=== PATIENT | female | born 2000 | race Caucasian/White ===

== ENCOUNTER 2023-02-24 20:40 | Emergency (ER) | payer MEDICAID, SELFPAY ==
--- NOTE | ~2023-02-24 | CT_ITS ---
EXAMINATION: CT abdomen pelvis w con INDICATION: Right-sided abdominal pain TECHNIQUE: Computed tomographic images of the abdomen and pelvis were obtained after the administrati on of 100 cc of Omnipaque 350 intravenous contrast. The dose-length product (DLP) was 1473.55 mGy-cm. Automated exposure control and iterative reconstruction technique were employed. COMPARISON: None available FINDINGS: There are small nodules of the visualized lung bases which measure up to 3 mm. The heart si ze is normal. There is focal fatty infiltration of the liver near the ligamentum teres. A 6 mm hypoat tenuating area of the spleen is too small to characterize but likely represents a cyst or lymphangiom a. The pancreas, gallbladder, and adrenal glands are normal. The kidneys are unremarkable. No patholo gically enlarged abdominal or pelvic lymph nodes are identified. No free intraperitoneal gas or evide nce of bowel obstruction. The appendix is normal. IMPRESSION: 1. No CT correlate for the patient's symptoms. Reviewed, dictated and finalized at location A.
[2023-02-24 20:43] VITALS: BP 148/70; PULSE 91; RESP 16; TEMP 36.2; O2SAT 99
[2023-02-24] MEDS: PANTOPRAZOLE SODIUM IV 40 MG VIAL IV PUSH (22:37)
[2023-02-24] MEDS: SODIUM CHLORIDE 0.9% IV 1,000 ML 999 ML IV CONT (22:37)
[2023-02-24] MEDS: ONDANSETRON INJ 4 MG/2 ML VIAL IV PUSH (22:37)
[2023-02-24 22:50] LABS: Basophils Percent Auto 0.2 % (0.2-1.2); Eosinophils Percent Auto 0.3 % (0-4.4); Hemoglobin 13.3 g/dL (12.0-15.0); Immature Granulocyte Absolute 0.02 K/mm3 (0.00-0.031); Immature Granulocyte Percent A 0.2 % (0-0.5); Lymphocytes Percent Auto 26.8 % (18.3-44.2); Mean Corpuscular HGB Conc 32.4 g/dl (32-36); Mean Corpuscular Hemoglobin 27.6 pg (26-34); Mean Corpuscular Volume 85.1 fl (80-100); Mean Platelet Volume 10.7 fl (7.4-10.4); Monocytes Absolute Auto 0.5 K/mm3 (0.1-0.6); Monocytes Percent Auto 4.4 % (2.6-8.5); Neutrophils Absolute Auto 7.9 K/mm3 (1.3-6.7); Neutrophils Percent Auto 68.1 % (45.5-73.1); Platelet Count Result 293 k/mm3 (150-375); Red Blood Count 4.82 M/mm3 (4.2-5.4); Red Cell Distribution Width 13.7 % (11.5-14.5); White Blood Count 11.6 K/mm3 (4.5-10.0)
[2023-02-24 23:33] LABS: Appearance Urine Turbid (Clear); Bacteria Urine None Seen /hpf; Bilirubin Urine Negative (Negative); Blood Urine Negative (Negative); Color Urine Yellow (Yellow); Glucose Urine UA Negative (Negative); Ketones Urine Negative (Negative); Leukocyte Esterase Ur Negative LEU/UL (Negative); Nitrate Urine Negative (Negative); Non Pathogenic Casts 0-2; Protein Urine Negative (Negative); RBC Urine 0-2 /hpf (0-2); Specific Grav Ur 1.017 (1.001-1.035); Squamous Epithelial Cell Urine None seen /hpf (Few); Urobilinogen Urine 0.2 mg/dL (<2.0); WBC Urine 0-5 /hpf; pH Urine 7.5 (5.0-9.0)
[2023-02-24 23:35] LABS: Alanine Aminotransferase 19 U/L (6-35); Albumin Level 4.6 g/dL (3.5-5.1); Alkaline Phosphatase 69 U/L (38-126); Anion Gap 10 mmol/L (8-16); Aspartate Amino Transferase 21 U/L (14-36); Bilirubin,Total 0.6 mg/dL (0.2-1.3); Blood Urea Nitrogen 7 mg/dL (7-17); Calcium 9.6 mg/dL (8.4-10.2); Carbon Dioxide 27 mmol/L (22-30); Chloride 103 mmol/L (98-107); Estimated CRCL calculation 198 ml/min; Estimated Glomerular Filt Rate > 60; Glucose 89 mg/dL (65-110); Lipase 48 U/L (23-300); Potassium 3.3 mmol/L (3.4-5.0); Sodium 140 mmol/L (137-145)
--- NOTE | 2023-02-24 23:47 | ED.NAVMDI ---
HPI - Nausea/Vomiting/Diarrhea General Chief complaint: Nausea/Vomiting/Diarrhea Stated complaint: nausea/vomiting Time Seen by Provider: 02/24/23 21:35 Source: patient Mode of arrival: ambulatory Limitations: no limitations History of Present Illness HPI Narrative: Patient is a 23-year-old female who presents to the ED with report of nausea, vomiting, diarrhea. Patient reports she took a Plan B pill after unprotected sex on 02/02. She reported having nausea for a few days after taking the pills. She developed vomiting approximately 1 week later and reports having persistent nausea and vomiting with any food or drink. She states this occurs daily. She is able to keep down small amounts of food and fluid at times, but has not had a large meal in the last 2 weeks she reports. She also reports having intermittent diarrhea and diffuse abdominal pain. She has not tried taking anything for her symptoms. She states she was sent to the ED by her primary care doctor to evaluate for appendicitis or cholecystitis. Patient denies any fever, rectal bleeding, hematemesis, melena, urinary symptoms. Related Data Allergies Allergy/AdvReac Type Severity Reaction Status Date / Time No Known Allergies Allergy Verified 02/24/23 20:43 Review of Systems Review of Systems: CONSTITUTIONAL: Denies fever, chills, or sweats. CARDIOVASCULAR: Denies chest pain. RESPIRATORY: Denies dyspnea. GASTROINTESTINAL: See HPI. GENITOURINARY: Denies dysuria or hematuria. SKIN: Denies rash or itching. MUSCULOSKELETAL: Denies back pain, joint pain, or myalgia. NEUROLOGIC: Denies headache, numbness, or weakness. All systems reviewed & are unremarkable except as noted in HPI and below PMFSH Past Medical History Medical History (Updated 02/25/23 @ 01:11 by Dina Abdul PA-C) No pertinent past medical history Surgical History Surgical History (Updated 02/25/23 @ 00:00 by Dina Abdul PA-C) No pertinent past surgical history Family History Family History Other Breast cancer Social History Social History Smoking status: Never smoker Alcohol intake: current Drinks per week: 1 Substance use: current Substance use type: marijuana Other substance usage details: 2-3 x week Living arrangements: other Additional living arrangements comments: single Occupation/Education: occupation 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 HEAD: Normocephalic, atraumatic. NECK: Supple. No adenopathy, no masses. RESPIRATORY: Airway patent, respirations nonlabored. Clear to auscultation bilaterally, no rales, rhonchi, wheezing. CARDIOVASCULAR: Regular rate and rhythm without murmurs, rubs, or gallops. Radial pulses 2+ and equal bilaterally. ABDOMINAL: Soft, tenderness in epigastric region, right upper quadrant, right lower quadrant, nondistended, no hepatosplenomegaly. Normoactive BS. MUSCULOSKELETAL: Moves all extremities. Strength/ROM intact without gross deformities. SKIN: Warm, dry, normal color. No rashes. NEURO: A&O X3. Speech clear. Cranial nerves II-XII grossly intact. Steady gait. No ataxic movements. PSYCHIATRIC: Appropriate mood and affect. Normal interaction. Course Vital Signs Vital signs: Vital Signs Temperature 97.1 F L 02/24/23 20:43 Pulse Rate 91 02/24/23 20:43 Respiratory Rate 16 02/24/23 20:43 Blood Pressure 148/70 H 02/24/23 20:43 Pulse Oximetry 99 02/24/23 20:43 Oxygen Delivery Room Air 02/24/23 20:43 Temperature 97.1 F L 02/24/23 20:43 Pulse Rate 63 02/25/23 01:24 Respiratory Rate 18 02/25/23 01:24 Blood Pressure 151/83 H 02/25/23 01:
[2023-02-24 23:49] LABS: Add Urine Microscopic? NO
[2023-02-25] MEDS: ONDANSETRON INJ 4 MG/2 ML VIAL IV PUSH (01:20)
[2023-02-25] MEDS: POTASSIUM CHLORIDE 20 MEQ TABLET 40 MEQ PO (01:21)
[2023-02-25 01:24] VITALS: BP 151/83; PULSE 63; RESP 18; O2SAT 98
== END 2023-02-25 01:30 | disposition home or self-care (01) ==
PROVIDERS: Emergency Provider Physician Assistant
DX: R11.2 Nausea with vomiting, unspecified (principal); R10.9 Unspecified abdominal pain; R91.8 Other nonspecific abnormal finding of lung field
CPT/HCPCS: 36415; 74177; 80053; 81003; 81025; 83690; 85025; 96361; 96374; 96375; 99284; A9270; C9113; J0131; J2405; J7030; Q9967

== ENCOUNTER 2023-03-28 10:43 | Outpatient (CLI) | payer MEDICAID, SELFPAY ==
[2023-03-28 12:01] LABS: HIV 1/2 Ab P24 Ag Result Negative (Negative)
[2023-03-28 12:33] LABS: Hepatitis B Surface Antigen Negative (Negative)
[2023-03-28 12:39] LABS: HAV RESULT Negative (Negative); Hepatitis B Core IgM Result Negative (Negative)
[2023-03-28 12:50] LABS: Hepatitis C Virus Antibody Negative (Negative)
[2023-03-29 07:56] LABS: Rapid Plasma Reagin Non-Reactive (NonReactive)
== END 2023-03-28 10:44 | disposition home or self-care (01) ==
LOC: ANHLAB 10:44
PROVIDERS: Visit Provider Obstetrics & Gynecology
DX: Z11.3 Encounter for screening for infections with a predominantly sexual mode of transmission (principal)
CPT/HCPCS: 36415; 80074; 86592; 86695; 86696; 86703; G0432

== ENCOUNTER 2024-03-05 08:44 | Outpatient (CLI) | payer BC, SELFPAY ==
[2024-03-05 09:59] LABS: Hematocrit 39.9 % (37.0-47.0); Hemoglobin 12.8 g/dL (12.0-15.0); Mean Corpuscular HGB Conc 32.1 g/dl (32-36); Mean Corpuscular Hemoglobin 27.9 pg (26-34); Mean Corpuscular Volume 86.9 fl (80-100); Mean Platelet Volume 10.7 fl (7.4-10.4); Platelet Count Result 249 k/mm3 (150-375); Red Blood Count 4.59 M/mm3 (4.2-5.4); Red Cell Distribution Width 13.6 % (11.5-14.5); White Blood Count 7.2 K/mm3 (4.5-10.0)
== END 2024-03-05 08:45 | disposition home or self-care (01) ==
LOC: ANHSURGERY 08:49
PROVIDERS: Visit Provider Student in an Organized Health Care Education/Training Program
DX: R10.2 Pelvic and perineal pain (principal); Z01.818 Encounter for other preprocedural examination
CPT/HCPCS: 36415; 85027; 86850; 86900; 86901

== ENCOUNTER 2024-03-07 00:26 | Day surgery (SDC) | payer BC, SELFPAY ==
[2024-03-03 15:21] VITALS: BMI 33.5
--- NOTE | 2024-03-03 15:46 | SUR.PREOP ---
Report to the Outpatient Waiting Room, entrance under the green pavilion located off [facility], at time 11:00am on date 03/07/2024. Planned Procedure Time: 1:00pm. Time changes happen often and if your time is changed the preop area will call you the afternoon before. - You and your visitor will be asked to self-screen and do not enter if you have any COVID symptoms. - A mask is optional within the hospital at this time. Patients may have clear liquids (water, carbonated beverages, clear teas, apple juice) until 3 hours prior to surgery with a maximum of 20 ounces- 10:00am. - No food from midnight until time of surgery - Infants may have breast milk until 4 hours before surgery, infant formula 6 hours prior to surgery. - Children will be allowed to drink immediately following surgery. If applicable, please bring a bottle or sippy cup to assist with drinking. Juice, water, soda, and popsicles are readily available. For infants on formula, please bring formula the day of surgery. Pacifiers are allowed. Take the following medications with a SIP of water the morning of surgery: birth control, bupropion DO NOT STOP ANY OF YOUR OTHER PRESCRIPTION MEDICATIONS PRIOR TO SURGERY ?EXCEPT THE FOLLOWING Medications to discontinue per physician N/A Please no make-up, nail montenegrin, hairspray, perfume, deodorant, or body powder the day of surgery. No jewelry (including any body piercings) or valuables the day of surgery, leave them at home. Please take a shower or bath the night before, or the morning of, surgery with an antibacterial soap. Wear comfortable, loose fitting clothing. Children are encouraged to wear pajamas. - Jewelry must be removed prior to entering the operating room. Rings and piercings that are not removed may be cut off. - The hospital will not accept responsibility for valuables. - Please leave all valuables, including medications, at home the day of surgery. If you are going home after surgery, a licensed electric pile driver operator must drive you home. - NO public transportation without another adult if you receive anesthesia. - We recommend that an adult stay with you for 24 hours following discharge. - We also recommend that you do not drive, make important decision, drink alcoholic beverages, or take any drugs that were not prescribed by your health care provider for at least 24 hours after your discharge time. For Pediatric surgeries, we recommend two adults accompany the child home. Follow any additional instructions given to you from your surgeon. If you or anyone in your household have experienced Covid symptoms in the past week, please notify your surgeon or the nurse liaison at the phone number below for possible testing. Telephone instructions given to Melanie and asked if any additional questions and then verbalized understanding. Patient advised to call surgeon office or pre surgery nurse liaison [phone] if any additional questions.
--- NOTE | 2024-03-07 11:37 | PM.IMHP ---
H&P: HPI History of Present Illness Date/Time: 03/07/24 11:37 Chief Complaint: pelvic pain Narrative: ?23-year-old female who presents with complaint of chronic pelvic pain.? Patient states she has had exacerbation of pelvic pain for the past year.? Patient states she has been experiencing some form of pelvic pain since she was 11 years old.? Patient has tried multiple forms of? hormonal contraceptives.? Patient is currently ? OCPs.? Patient reports amenorrhea on her OCP.? Patient states she still struggles with chronic pain.? Patient states she has the pain daily.? She says at baseline the pain is a 3/10.? Patient states once a week she will has exacerbation of her pain.? Patient states when she has flare up of her pain she also has intense nausea and vomiting.? Patient has had colonoscopy and EGD performed.? All previous testing was benign.? Patient was recently screened for STDs which was negative.? Patient has not been sexually active in a year. Review of Systems Cardiovascular: Cardiovascular: Denies chest pain, Denies leg edema, Denies palpitations, Denies dyspnea and Denies dyspnea on exertion Respiratory: Respiratory: Denies cough, Denies dyspnea and Denies dyspnea on exertion Gastrointestinal: Gastrointestinal: Denies abdominal pain, Denies constipation, Denies diarrhea, Denies nausea and Denies vomiting Genitourinary: Genitourinary: Denies hematuria, Denies urinary frequency, Denies dysuria, Denies pelvic pain, Denies urinary incontinence and Denies vaginal discharge Neurologic: Reports system reviewed and no additional complaints, except as documented Psychiatric: Psychiatric: Reports no additional psychiatric complaints Endocrine: Endocrine: Denies palpitations [facility] Past Medical History Medical History (Updated 03/07/24 @ 11:38 by Malik Gutierrez MD) No pertinent past medical history Normal colonoscopy Surgical History Surgical History (Updated 01/24/24 @ 08:12 by Jaclyn Collins CMA) History of esophagogastroduodenoscopy (EGD) Hx of tonsillectomy Family History Family History Grandparent Breast cancer paternal grandmother Social History Social History Smoking status: Never smoker Alcohol intake: current Drinks per week: 1 Substance use: current Substance use type: marijuana Other substance usage details: 2-3 x week Living arrangements: alone Additional living arrangements comments: single Occupation/Education: occupation 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 Gender identity (if verbalized by the patient): Female Sexual Orientation (if Verbalized by the Patient): Straight or Heterosexual Spiritual care concerns: No Meds Home Medications and Allergies Home Medications Medication Instructions Recorded Confirmed Type drospirenone 3 mg-ethinyl 1 tablet PO DAILY #84 tabs 03/28/23 03/03/24 Rx estradiol 0.02 mg tablet (MADALYN (28)) bupropion HCl 150 mg tablet,12 hr 150 mg PO DAILY 10/02/23 03/03/24 History sustained-release Allergies Allergy/AdvReac Type Severity Reaction Status Date / Time No Known Allergies Allergy Verified 03/07/24 11:20 Exam Const: General: no acute distress Eyes: EOM: EOMs intact bilaterally Neck: Neck: supple Thyroid: thyroid normal Chest: Breast/axilla inspection: normal inspection of the breasts Breast/axilla palpation: normal palpation of the breasts, normal palpation of the axillae and no axillary lymphadenopathy Resp: Effort & Inspection: normal respiratory effort Auscultation: clear to auscultation bilaterally Cardio: Rate: regular rate Rhythm: regular rhythm GI: Inspection: non-distended GI Palp: Yes Soft to palpation, No Tenderness to palpation present (GI) and No Guarding due to palpation present (GI) Auscultation: normal bowel sounds : General: No bladder normal to palpati
[2024-03-07] MEDS: ACETAMINOPHEN 500 MG TABLET 1000 MG PO (11:55)
[2024-03-07] MEDS: KETOROLAC 15 MG/ML VIAL (*BKC) IV PUSH (11:57)
--- NOTE | 2024-03-07 12:03 | WPDHPUPDATE1 ---
History and Physical Update Update Date/Time: 03/07/24 12:03 History and Physical has been reviewed, including an updated exam of the patient. There are NO changes in the patient's condition. Risks, benefits, and alternatives have been discussed and questions answered. Patient agrees to proceed with procedure.
[2024-03-07 12:05] VITALS: BP 120/65; PULSE 81; RESP 16; TEMP 36.6; O2SAT 99
--- NOTE | 2024-03-07 13:20 | SUR.PREOP ---
patient updated on delay to surgery start
--- NOTE | 2024-03-07 13:50 | SUR.PREOP ---
patient updated again on surgery delay
[2024-03-07] MEDS: LIDOCAINE HCL 1% LOCAL INJ 20 ML VIAL INFILTRATE (14:57)
[2024-03-07 15:11] VITALS: BP 117/83; PULSE 66; RESP 16; TEMP 36.4; O2SAT 97
[2024-03-07] MEDS: LACTATED RINGERS 1,000 ML 30 ML IV CONT ×2 (15:11)
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
[2024-03-07 15:30] VITALS: BP 124/66; PULSE 68; RESP 20; O2SAT 98
[2024-03-07 15:45] VITALS: BP 135/80; RESP 18; O2SAT 99
[2024-03-07 16:00] VITALS: BP 142/96; PULSE 116; RESP 18
[2024-03-07 16:30] VITALS: BP 140/83; PULSE 69; RESP 16
== END 2024-03-07 16:50 | disposition home or self-care (01) ==
PROVIDERS: Visit Provider Student in an Organized Health Care Education/Training Program
PROC: (CPT 49320; principal; 2024-03-07 13:00)
DX: N80.319 Endometriosis of the anterior cul-de-sac, unspecified depth (principal); F12.90 Cannabis use, unspecified, uncomplicated
CPT/HCPCS: 58662; A9270; J1100; J1170; J1200; J1885; J2250; J2405; J2704; J3010; J7030; J7120

== ENCOUNTER 2024-08-18 13:28 | Outpatient (CLI) | payer BC, SELFPAY | END 2024-08-18 13:29 | disposition home or self-care (01) | PROVIDERS: PCP Family Medicine; Visit Provider Family Medicine | DX: H91.90 Unspecified hearing loss, unspecified ear (principal) | CPT/HCPCS: 92557; 92567 ==

== ENCOUNTER 2024-08-21 10:04 | Outpatient (CLI) | payer BC, SELFPAY ==
[2024-08-21 10:25] LABS: Hematocrit 40.2 % (37.0-47.0); Hemoglobin 12.9 g/dL (12.0-15.0); Mean Corpuscular HGB Conc 32.1 g/dl (32-36); Mean Corpuscular Hemoglobin 27.4 pg (26-34); Mean Corpuscular Volume 85.4 fl (80-100); Mean Platelet Volume 10.6 fl (7.4-10.4); Platelet Count Result 237 k/mm3 (150-375); Red Blood Count 4.71 M/mm3 (4.2-5.4); Red Cell Distribution Width 13.2 % (11.5-14.5); White Blood Count 5.7 K/mm3 (4.5-10.0)
[2024-08-21 10:38] LABS: Alanine Aminotransferase 12 U/L (6-35); Albumin Level 4.5 g/dL (3.5-5.1); Alkaline Phosphatase 53 U/L (38-126); Anion Gap 9 mmol/L (4-12); Aspartate Amino Transferase 16 U/L (14-36); Bilirubin,Total 0.4 mg/dL (0.2-1.3); Blood Urea Nitrogen 8 mg/dL (7-17); Calcium 9.2 mg/dL (8.4-10.2); Carbon Dioxide 26 mmol/L (22-30); Chloride 104 mmol/L (98-107); Cholesterol 259 mg/dL (0-200); Estimated Glomerular Filt Rate > 60; Glucose 100 mg/dL (65-110); HDL Direct 80 mg/dL; Sodium 139 mmol/L (137-145); Triglycerides 75 mg/dL (<150)
[2024-08-21 10:49] LABS: LDL Cholesterol Direct 146 mg/dL
[2024-08-21 11:09] LABS: Thyroid Stimulating Hormone 0.888 uIU/mL (0.465-4.680)
== END 2024-08-21 10:05 | disposition home or self-care (01) ==
LOC: ANHLAB 10:06
PROVIDERS: PCP Family Medicine; Visit Provider Family Medicine
DX: E66.9 Obesity, unspecified (principal); Z79.899 Other long term (current) drug therapy; Z82.49 Family history of ischemic heart disease and other diseases of the circulatory system
CPT/HCPCS: 36415; 80053; 80061; 84443; 85027; 85303; 85306

== ENCOUNTER 2024-12-12 15:04 | Outpatient (CLI) | payer BC, SELFPAY ==
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
--- OUTSIDE RECORDS SUMMARY | 2024-12-12 15:07 | XMS_ITS | Clinical Summary ---
Author Organization [facility] Address [address] [place] [address]. [place], [place] [id number] [place] [id number] Care Team Providers Care Content Development Manager Name Role Phone None, Provider MD Primary Care Provider Unavaila ble Allergies No known active allergies Medications No known medications Social History Tobacco Use Types Packs/Day Years Used Date Smoking Tobacco: Never Smokeless Tobacco: Never Tobacco Cessation:Counseling Given: Not Answered Alcohol Use Standard Drinks/Week Comments Yes 0 (1 standard drink = 0.6 oz pur e alcohol) occassional Comments Unknown Sex and Gender Information Value Date Recorded Sex Assigned at Not on file 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 Gender Identity Not on file Sexual Orientation Not on file Last Filed Vital Signs Vital Sign Reading Time Taken Comments Blood Pressure 150/83 03/25/2023 9:42 PM CDT Pulse 64 03/25/2023 9:42 PM CDT Temperature 36.7 ??C (98.1 ??F) 03/25/2023 9:42 PM CD T Respiratory Rate 20 03/25/2023 9:42 PM CDT Oxygen Saturation 100% 03/26/2023 12:30 AM CDT Inhaled Oxygen Concentration - - Weight 113.4 kg (250 lb) 03/25/2023 9:41 PM CDT Height 177.8 cm (5' 10 ) 03/25/2023 9:41 PM CDT Body Mass Index 35.87 03/25/2023 9:41 PM CDT Plan of Treatment Health Maintenance Due Date Last Done Comments Cervical Cancer Screening Pap Smear (Age 21 to 29) Every 3 Years 1999 Cervical Cancer Screening 1999 Annual Physical 2002 Hepatitis C 2017 HPV Vaccines (2 - 3-dose series) 07/16/2017 06/18/2017 DTaP, Tdap and Td Vaccines (7 - Td or Tdap) 04/30/2022 04/30/2012, 07/28/2003, 06/12/2000, Additional history exists COVID-19 Vaccine ( season) 2024 09/29/2021, 03/29/2021, 03/01/2021 Influenza Adult (#1) 2024 09/29/2021 Hepatitis B Vaccines Completed 02/14/2000, 1999, 1999 Meningococcal Vaccine Completed 06/18/2017 Meningococcal B Vaccine Aged Out No l onger eligible based on patient's age to complete this topic Pneumococcal Vaccine: Pediatrics (0 to 5 Years) and At-Risk Patients (6 to 64 Years) Aged Out No longer eligible based on patient's age to complete this topic RSV Immunizations Under 20 Months Aged Out No longer eligible based on patient's age to complete this topic Insurance MEDICAID Care Teams Content Development Manager Relationship Specialty Start Date End Date None, Provider, MD PCP - General UNKNOWN PHYSICIAN SPECIALTY 03/25/23
--- OUTSIDE RECORDS SUMMARY | 2024-12-12 15:07 | XMS_ITS | Clinical Summary ---
Author Organization [facility] Address [address] [place] [address] Care Team Providers Care Business Information Consultant Name Role Phone Unavailable Primary Care Provider Unavailabl e Source Comments [facility]non-owned Affiliates and Associated Physician Practices is amultiple site organization consisting of ambulatory clinics and hospital sitesin [place], [place], [place] and [place]. This disclosure is being madepursuant to the Care Everywhere program and may not contain all information available regarding this patient. Last updated 18.[facility] Allergies No known active allergies Medications * Be aware that medications may not be up to date on this document. Alwaysverify current medications with the patient. Medication Sig Dispensed Refills Start Date End Date Status ibuprofen (MOTRIN) 600 MG tablet Take 1 tablet by mouth every 6 hours as needed for Pain 20 tablet 03/28/2018 Active Social History Tobacco Use Types Packs/Day Years Used Date Smoking Tobacco: Never Smokeless Tobacco: Never Alcohol Use Standard Drinks/Week Comments No 0 (1 standard drink = 0.6 oz pur e alcohol) Sex and Gender Information Value Date Recorded Sex Assigned at Not on file Gender Identity Not on file Sexual Orientation Straight 01/07/2024 4: 24 PM HIDE OR SKIN BUFFER Last Filed Vital Signs Vital Sign Reading Time Taken Comments Blood Pressure 142/83 04/03/2021 7:14 PM CDT Pulse 89 04/03/2021 7:14 PM CDT Temperature 37.2 ??C (98.9 ??F) 04/03/2021 7:14 PM CD T Respiratory Rate 18 04/03/2021 7:14 PM CDT Oxygen Saturation 100% 04/03/2021 7:14 PM CDT Inhaled Oxygen Concentration - - Weight 108.9 kg (240 lb) 04/03/2021 4:44 PM CDT Height 177.8 cm (5' 10 ) 04/03/2021 4:44 PM CDT Body Mass Index 34.44 04/03/2021 4:44 PM CDT Plan of Treatment Health Maintenance Due Date Last Done Comments PAP SMEAR 1999 HIV SCREENING 2014 HPV VACCINE (1 - 3-dose series) 2014 CHLAMYDIA/GONORRHEA SCREENING 2015 HEPATITIS C SCREENING 01/27/2017 DTAP/TDAP/TD VACCINES (1 - Tdap) 2018 HEPATITIS B VACCINE (1 of 3 - 19+ 3-dose series) 2018 COVID-19 VACCINE ( - 2023-2 5 season) 2024 INFLUENZA VACCINE (#1) 2024 DEPRESSION SCREENING 11/12/2024 ZOSTER VACCINE (1 of 2) 2049 HIB VACCINE Aged Out No longer eligi ble based on patient's age to complete this topic MENINGOCOCCAL (Group B) VACCINE Aged Out No longer eligible based on patient's age to complete this topic MENINGOCOCCAL VACCINE Aged Out No curtis triny eligible based on patient's age to complete this topic PNEUMOCOCCAL VACCINE Aged Out No long er eligible based on patient's age to complete this topic
--- OUTSIDE RECORDS SUMMARY | 2024-12-12 15:07 | XMS_ITS | Referral Summary ---
Author Organization [facility] Address [address] [place] [address] Care Team Providers Care Flue Tile Press Operator Name Role Phone Robert Valera NP Unavailable [phone] Robert Valera NP Primary Care Provider [phone]- [phone] Allergies No known active allergies Medications drospirenone-eth inyl estradioL (LISETTE BERGMAN) 3-0.02 mg per tablet Take 1 tablet by mouth daily Active buPROPion SR (WELLBUTRIN SR) 150 mg 12 hr tablet Take 1 tablet (150 mg total) by mouth 2 (two) times a day Active famotidine (PEPCID) 20 mg tablet Take 1 tablet (20 mg total) by mouth 2 (two) times a day Active Active Problems Problem Noted Date Diagnosed Date Urinary frequency 07/07/2021 Neck mass 06/23/2020 Overview (06/23/2020): Added automatically from request for surgery [id number] Vomiting 02/10/2010 Diarrhea 02/10/2010 Abdominal pain 02/10/2010 Social History Tobacco Use Types Packs/Day Years Used Date Smoking Tobacco: Never Smokeless Tobacco: Never Tobacco Cessation:Counseling Given: Not Answered Alcohol Use Standard Drinks/Week Comments Not Currently 0 (1 standard drink = 0.6 oz pur e alcohol) AUDIT-C Answer Date Recorded Q1: How often do you have a drink containing alc ohol? Monthly or less 01/04/2024 Q2: How many drinks containi ng alcohol do you have on a typical day when you are drinking? 1 or 2 01/04/2024 Q3: How often do you have si x or more drinks on one occasion? Never 01/04/2024 Comments No Sex and Gender Information Value Date Recorded Sex Assigned at Not on file Legal Sex Female 1:02 PM CYTOGENETICS TECHNOLOGIST Gender Identity Female 08/22/2021 2:22 PM CDT Sexual Orientation Straight 08/22/2021 2: 22 PM CDT Last Filed Vital Signs Vital Sign Reading Time Taken Comments Blood Pressure 124/79 01/04/2024 11:23 AM CYTOGENETICS TECHNOLOGIST Pulse 84 06/22/2022 3:00 PM CDT Temperature 36.8 ??C (98.2 ??F) 10/27/2022 11:[address] Respiratory Rate 20 07/02/2020 10:30 AM CDT Oxygen Saturation 95% 06/22/2022 3:00 PM CDT Inhaled Oxygen Concentration - - Weight 108 kg (238 lb) 01/04/2024 11:23 AM CYTOGENETICS TECHNOLOGIST Height 177.8 cm (5' 10 ) 01/04/2024 11:23 AM CYTOGENETICS TECHNOLOGIST Body Mass Index 34.15 01/04/2024 11:23 AM CYTOGENETICS TECHNOLOGIST Plan of Treatment Not on file Insurance [facility] [employer] [place] [employer] [place] Advance Direct[place] For more information, please contact: [phone] * Full Code (Latest Code Status on File) Date Activated Date Inactivated Comments 07/02/2020 10:05 AM 07/02/2020 4:15 PM Care Teams Flue Tile Press Operator Relationship Specialty Start Date End Date Robert Valera NP [address] [place] [address] PCP - General Family Practice 06/20/21 Robert Valera NP [address] [place] [address] Nurse Practitioner Family Practice 06/17/20
--- OUTSIDE RECORDS SUMMARY | 2024-12-12 15:07 | XMS_ITS | Encounter Summary ---
Author Organization [facility] Address [address] [place] [address]. 

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
--- OUTSIDE RECORDS SUMMARY | 2024-12-12 15:07 | XMS_ITS | Referral Summary ---
Author Organization [facility] Address [address] [place] [address] Care Team Providers Care Incoming Inspector Name Role Phone Unavailable Primary Care Provider Unavailabl e Source Comments [facility],non-owned Affiliates and Associated Physician Practices is amultiple site organization consisting of ambulatory clinics and hospital sitesin [place] and [place]. This disclosure is being madepursuant to the Care Everywhere program and may not contain all information available regarding this patient. 

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
== END 2024-12-12 15:05 | disposition home or self-care (01) ==
LOC: ANHIMG 15:05
PROVIDERS: PCP Family Medicine; Visit Provider Family Medicine
DX: M53.3 Sacrococcygeal disorders, not elsewhere classified (principal); W19.XXXA Unspecified fall, initial encounter
CPT/HCPCS: 72220

== ENCOUNTER 2025-01-12 15:21 | Outpatient (CLI) | payer BC, SELFPAY ==
[2025-01-12 16:32] LABS: Hepatitis B Surface Antigen Negative (Negative)
[2025-01-12 16:39] LABS: HAV RESULT Negative (Negative); Hepatitis B Core IgM Result Negative (Negative)
[2025-01-12 16:41] LABS: HIV 1/2 Ab P24 Ag Result Negative (Negative)
[2025-01-12 16:50] LABS: Hepatitis C Virus Antibody Negative (Negative)
[2025-01-12 16:53] LABS: Syphilis IgG/IgM Antibody Negative (Negative)
== END 2025-01-12 15:22 | disposition home or self-care (01) ==
LOC: ANHLAB 15:22
PROVIDERS: PCP Family Medicine; Visit Provider Student in an Organized Health Care Education/Training Program
DX: Z11.3 Encounter for screening for infections with a predominantly sexual mode of transmission (principal)
CPT/HCPCS: 36415; 80074; 86592; 86593; 86695; 86696; 86703; G0432

== ENCOUNTER 2025-03-18 14:27 | Outpatient (CLI) | payer BC, SELFPAY ==
--- OUTSIDE RECORDS SUMMARY | 2025-03-18 14:34 | XMS_ITS | Encounter Summary ---
Author Organization [facility] Address [address] [place] [address] Care Team Providers Care Iv Therapy Nurse Name Role Phone None, Provider Primary Care Provider Jace leonard Encounter Details Date Type Department Care Team (Late st Contact Info) Description 11/14/2016 Abstract [facility] Conversion [address] [place] [address] , Generic Conversion, Social History Tobacco Use Types Packs/Day Years Used Date Smoking Tobacco: Never Assessed Comments Unknown Sex and Gender Information Value Date Recorded Sex Assigned at Not on file Legal Sex Female 10:20 PM DETENTION DEPUTY Gender Identity Not on file Sexual Orientation Not on file documented as of this encounter Plan of Treatment Not on file documented as of this encounter Visit Diagnoses Not on filedocumented in this encounter Care Teams Iv Therapy Nurse Relationship Specialty Start Date End Date None, Provider, PCP - General UNKNOWN PHYSICIAN SPECIALTY 03/25/23 documented as of this encounter
--- OUTSIDE RECORDS SUMMARY | 2025-03-18 14:34 | XMS_ITS | Clinical Summary ---
Author Organization [facility] [employer] Address [address] [place] [address] Care Team Providers Care Reproducer Name Role Phone Unavailable Primary Care Provider Unavailabl e Source Comments [facility] [employer],non-owned Affiliates and Associated Physician Practices is amultiple site organization consisting of ambulatory clinics and hospital sitesin [place], [place], [place] and [place]. This disclosure is being madepursuant to the Care Everywhere program and may not contain all information available regarding this patient. Last updated 18.[facility] [employer] Allergies No known active allergies Medications * Be aware that medications may not be up to date on this document. Alwaysverify current medications with the patient. ibuprofen (MOTRIN) 600 MG tablet Take 1 tablet by mouth every 6 hours as needed for Pain 20 tablet 03/28/2018 Active Social History Tobacco Use Types Packs/Day Years Used Date Smoking Tobacco: Never Smokeless Tobacco: Never Alcohol Use Standard Drinks/Week Comments No 0 (1 standard drink = 0.6 oz pur e alcohol) Comments No Sex and Gender Information Value Date Recorded Sex Assigned at Not on file Legal Sex Female 8:04 PM CDT Gender Identity Not on file Sexual Orientation Straight 01/07/2024 4: 24 PM TRANSPORTATION AID Last Filed Vital Signs Vital Sign Reading Time Taken Comments Blood Pressure 142/83 04/03/2021 7:14 PM CDT Pulse 89 04/03/2021 7:14 PM CDT Temperature 37.2 C (98.9 F) 04/03/2021 7:14 PM CDT Respiratory Rate 18 04/03/2021 7:14 PM CDT Oxygen Saturation 100% 04/03/2021 7:14 PM CDT Inhaled Oxygen Concentration - - Weight 108.9 kg (240 lb) 04/03/2021 4:44 PM CDT Height 177.8 cm (5' 10 ) 04/03/2021 4:44 PM CDT Body Mass Index 34.44 04/03/2021 4:44 PM CDT Plan of Treatment Health Maintenance Due Date Last Done Comments HIV SCREENING 2014 HPV VACCINE (1 - 3-dose series) 2014 HEPATITIS C SCREENING 01/27/2017 DTAP/TDAP/TD VACCINES (1 - Tdap) 2018 HEPATITIS B VACCINE (1 of 3 - 19+ 3-dose series) 2018 COVID-19 VACCINE (1 - 2023-2 5 season) 2024 DEPRESSION SCREENING 11/12/2024 INFLUENZA VACCINE (Season Ended) 2025 ZOSTER VACCINE (1 of 2) 2049 HIB VACCINE Aged Out No longer eligi ble based on patient's age to complete this topic MENINGOCOCCAL (Group B) VACC INE SHARED DECISION-MAKING Aged Out No longer eligibl e based on patient's age to complete this topic MENINGOCOCCAL GROUPS A/C/Y/W VACCINE Aged Out No longer eligible b ased on patient's age to complete this topic PNEUMOCOCCAL VACCINE Aged Out No long er eligible based on patient's age to complete this topic Insurance [facility]
--- OUTSIDE RECORDS SUMMARY | 2025-03-18 14:34 | XMS_ITS | Clinical Summary ---
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 Gender Identity Not on file Sexual Orientation Not on file Last Filed Vital Signs Vital Sign Reading Time Taken Comments Blood Pressure 150/83 03/25/2023 9:42 PM CDT Pulse 64 03/25/2023 9:42 PM CDT Temperature 36.7 C (98.1 F) 03/25/2023 9:42 PM CDT Respiratory Rate 20 03/25/2023 9:42 PM CDT [...] Vaccine ( season) 2024 09/29/2021, 03/29/2021, 03/01/2021 Hepatitis B Vaccines Completed 02/14/2000, 1999, 1999 Meningococcal Vaccine Completed 06/18/2017 Meningococcal B Vaccine Aged Out No l onger eligible based on patient's age to complete this topic Pneumococcal Vaccine: Pediatrics (0 to 5 Years) and At-Risk Patients (6 to 49 Years) Aged Out No longer eligible based on patient's age to complete this topic RSV Immunizations Under 20 Months Aged Out No longer eligible based on patient's age to complete this topic Insurance MEDICAID Care Teams Laundry Tech Relationship Specialty Start Date End Date None, Provider, MD PCP - General UNKNOWN PHYSICIAN SPECIALTY 03/25/23
[2025-03-18 19:29] LABS: Hematocrit 39.1 % (37.0-47.0); Hemoglobin 12.5 g/dL (12.0-15.0); Mean Corpuscular Hemoglobin 27.5 pg (26-34); Mean Corpuscular Volume 86.1 fl (80-100); Mean Platelet Volume 11.5 fl (7.4-10.4); Platelet Count Result 217 k/mm3 (150-375); Red Blood Count 4.54 M/mm3 (4.2-5.4); Red Cell Distribution Width 13.2 % (11.5-14.5); White Blood Count 5.8 K/mm3 (4.5-10.0)
[2025-03-18 19:59] LABS: Alanine Aminotransferase 13 U/L (6-35); Albumin Level 4.4 g/dL (3.5-5.1); Alkaline Phosphatase 55 U/L (38-126); Anion Gap 8 mmol/L (4-12); Aspartate Amino Transferase 19 U/L (14-36); Bilirubin,Total 0.7 mg/dL (0.2-1.3); Blood Urea Nitrogen 5 mg/dL (7-17); Calcium 9.1 mg/dL (8.4-10.2); Carbon Dioxide 27 mmol/L (22-30); Chloride 106 mmol/L (98-107); Cholesterol 239 mg/dL (0-200); Estimated Glomerular Filt Rate > 60; Glucose 87 mg/dL (65-110); HDL Direct 67 mg/dL; Sodium 141 mmol/L (137-145); Triglycerides 82 mg/dL (<150)
[2025-03-18 20:10] LABS: LDL Cholesterol Direct 134 mg/dL
[2025-03-18 20:32] LABS: Thyroid Stimulating Hormone 0.574 uIU/mL (0.465-4.680)
== END 2025-03-18 14:28 | disposition home or self-care (01) ==
LOC: ANHGOSHLAB 14:28
PROVIDERS: PCP Family Medicine; Visit Provider Family Medicine
DX: E66.9 Obesity, unspecified (principal); Z79.899 Other long term (current) drug therapy
CPT/HCPCS: 36415; 80053; 80061; 84443; 85027